=== PATIENT | female | born 1990 ===

== ENCOUNTER 2018-11-22 09:35 | Observation (INO) | payer OTHER ==
[~2018-11-22] VITALS: Ht 160 cm; Wt 81.6 kg
[2018-11-22] MEDS ORDERED: PREN27TA7 OR (11:33)
== END 2018-11-22 10:40 | disposition home or self-care (01) | DRG 833 ==
LOC: LDRP 09:35
PROVIDERS: ADMIT Obstetrics & Gynecology; ATTEND Obstetrics & Gynecology
DX: O26.893 Other specified pregnancy related conditions, third trimester (principal); R10.30 Lower abdominal pain, unspecified; Z87.891 Personal history of nicotine dependence; Z3A.31 31 weeks gestation of pregnancy
CPT/HCPCS: 59025; 81002; G0378